=== PATIENT | male | born 1960 | race Caucasian/White ===

== ENCOUNTER 2017-07-18 17:23 | Emergency (ER) | payer SELFPAY ==
[~2017-07-18] VITALS: Ht 188 cm; Wt 72.7 kg
[~2017-07-18 17:23] MED LIST: BACTROBAN CREAM15 GM TP; MOBIC7.5 MG PO
[2017-07-18 17:54] LABS: HEMATOCRIT 51.4 % (38.0-50.0); HEMOGLOBIN 17.5 G/DL (12.5-16.6); MCH 29.8 PG (29.0-34.0); MCV 87.6 FL (86-99); RBC DIS.WIDTH-CV 15.8 % (11.8-14.6); RBC DIS.WIDTH-SD 50.3 % (39-53); RED BLOOD COUNT 5.87 M/uL (4.00-5.50)
[2017-07-18 18:04] LABS: CHLORIDE 110 mEq/L (99-109); POTASSIUM 3.9 mEq/L (3.7-5.4); SODIUM 151 mEq/L (136-147)
[2017-07-18 18:06] LABS: GLUCOSE 91 mg/dL (70-99)
[2017-07-18 18:09] LABS: SERUM ETHYL ALCOHOL 346 mg/dL
[2017-07-18 18:10] LABS: CREATININE 0.8 mg/dL (0.6-1.3); GFR ESTIMATE (CALCULATED) > 59 mL/min/ (58.99-99999)
[2017-07-18 18:12] LABS: UREA NITROGEN (BUN) 6 mg/dL (9-23)
[2017-07-18 18:13] LABS: SALICYLATE < 5.0 MG/DL (15-30)
[2017-07-18 18:14] LABS: ACETAMINOPHEN (TYLENOL) < 10 mcg/mL (10-30)
[2017-07-18 18:25] LABS: THC CANNABINOIDS NEGATIVE (50 ng/mL)
[2017-07-18 18:26] LABS: AMPHETAMINE NEGATIVE (500 ng/mL); BARBITURATES NEGATIVE (200 ng/mL); BENZODIAZEPINES NEGATIVE (150 ng/mL); BUPRENORPHINE NEGATIVE (10 ng/mL); COCAINE NEGATIVE (150 ng/mL); METHADONE NEGATIVE (200 ng/mL); METHAMPHETAMINE NEGATIVE (500 ng/mL); OPIATES (MORPHINE) NEGATIVE (100 ng/mL); OXYCODONE NEGATIVE (100 ng/mL); PHENCYCLIDINE NEGATIVE (25 ng/mL); PROPOXYPHENE NEGATIVE (300 ng/mL); TRICYCLIC ANTIDEPRESSANTS NEGATIVE (300 ng/mL)
[2017-07-18 18:36] LABS: PLAT.SUFFICIENCY ADEQUATE; PLATELET COUNT 183 K/uL (156-360)
[2017-07-18 23:19] VITALS: BP 130/72
== END 2017-07-18 23:20 | disposition home or self-care (01) ==
LOC: EME 17:23
PROVIDERS: Emergency Medicine
DX: F10.129 Alcohol abuse with intoxication, unspecified (principal); Y90.8 Blood alcohol level of 240 mg/100 ml or more; F17.200 Nicotine dependence, unspecified, uncomplicated
CPT/HCPCS: 80048; 85027; 99281; 99285; G0480

== ENCOUNTER 2017-07-21 10:06 | Emergency (ER) | payer SELFPAY ==
[~2017-07-21] VITALS: Ht 177.8 cm; Wt 74.0 kg
[2017-07-21 10:53] LABS: HEMATOCRIT 49.7 % (38.0-50.0); HEMOGLOBIN 16.3 G/DL (12.5-16.6); MCH 29.1 PG (29.0-34.0); MCHC 32.8 G/DL (30.0-36.0); MCV 88.8 FL (86-99); PLATELET COUNT 174 K/uL (156-360); RBC DIS.WIDTH-CV 16.4 % (11.8-14.6); RBC DIS.WIDTH-SD 53.2 % (39-53)
[2017-07-21 11:00] LABS: ALBUMIN 3.8 g/dL (3.2-4.8); CHLORIDE 109 mEq/L (99-109); POTASSIUM 3.9 mEq/L (3.7-5.4); SODIUM 147 mEq/L (136-147)
[2017-07-21 11:03] LABS: GLUCOSE 107 mg/dL (70-99); TOTAL PROTEIN 6.7 g/dL (6.4-8.3)
[2017-07-21 11:04] LABS: TOTAL BILIRUBIN 0.3 mg/dL (0.0-1.0)
[2017-07-21 11:06] LABS: ALKALINE PHOSPHATASE 78 IU/L (3-129); CREATININE 0.7 mg/dL (0.6-1.3); GFR ESTIMATE (CALCULATED) > 59 mL/min/ (58.99-99999); SERUM ETHYL ALCOHOL 236 mg/dL
[2017-07-21 11:07] LABS: UREA NITROGEN (BUN) 9 mg/dL (9-23)
[2017-07-21 11:08] LABS: AST (GOT) 23 IU/L (2-34)
[2017-07-21 11:09] LABS: ALT (GPT) 18 IU/L (3-49)
[2017-07-21 15:14] VITALS: BP 136/88
== END 2017-07-21 15:39 | disposition home or self-care (01) ==
LOC: EME 10:06
PROVIDERS: Emergency Medicine
DX: F10.129 Alcohol abuse with intoxication, unspecified (principal); Y90.7 Blood alcohol level of 200-239 mg/100 ml; S80.211A Abrasion, right knee, initial encounter; F31.9 Bipolar disorder, unspecified; F20.9 Schizophrenia, unspecified; F17.200 Nicotine dependence, unspecified, uncomplicated
CPT/HCPCS: 73564; 80053; 81003; 85027; 99281; 99284; G0480

== ENCOUNTER 2017-07-21 17:50 | Emergency (ER) | payer SELFPAY ==
[~2017-07-21] VITALS: Ht 182.9 cm; Wt 83.9 kg
[2017-07-22 00:50] VITALS: BP 145/99
== END 2017-07-22 00:50 | disposition home or self-care (01) ==
LOC: EME 17:50
DX: F10.129 Alcohol abuse with intoxication, unspecified (principal); F43.10 Post-traumatic stress disorder, unspecified; F17.200 Nicotine dependence, unspecified, uncomplicated; F20.9 Schizophrenia, unspecified
CPT/HCPCS: 70450; 71045; 72125; 82948; 99281; 99284

== ENCOUNTER 2017-07-27 16:28 | Emergency (ER) | payer SELFPAY ==
[~2017-07-27] VITALS: Ht 188 cm; Wt 73.0 kg
[2017-07-27 16:34] VITALS: BP 139/96
== END 2017-07-27 20:37 | disposition left against medical advice (07) ==
LOC: EME 16:28
DX: F10.99 Alcohol use, unspecified with unspecified alcohol-induced disorder (principal); Z53.21 Procedure and treatment not carried out due to patient leaving prior to being seen by health care provider

== ENCOUNTER 2017-08-07 14:18 | Emergency (ER) | payer SELFPAY ==
[~2017-08-07] VITALS: Ht 188 cm; Wt 69.3 kg
[2017-08-07 17:58] VITALS: BP 116/79
== END 2017-08-07 18:00 | disposition home or self-care (01) ==
LOC: EME 14:18
PROC: 0HQ0XZZ Repair Scalp Skin, External Approach (ICD-10-PCS; principal; 2017-08-07)
DX: F10.129 Alcohol abuse with intoxication, unspecified (principal); S01.01XA Laceration without foreign body of scalp, initial encounter; M25.511 Pain in right shoulder; W19.XXXA Unspecified fall, initial encounter; F31.9 Bipolar disorder, unspecified; F20.9 Schizophrenia, unspecified; F17.200 Nicotine dependence, unspecified, uncomplicated
CPT/HCPCS: 70450; 71046; 72125; 99281; 99284

== ENCOUNTER 2017-08-09 16:06 | Inpatient (IN) | payer SELFPAY ==
[~2017-08-09] VITALS: Ht 167.6 cm; Wt 64.8 kg
[2017-08-09 16:31] LABS: APPEARANCE CLEAR ((CLEAR)); BILIRUBIN NEGATIVE; BLOOD SMALL; COLOR STRAW ((YELLOW)); GLUCOSE (STRIP) NEGATIVE; KETONES NEGATIVE; LEUKOCYTES NEGATIVE; NITRITE NEGATIVE; PROTEIN (STRIP) NEGATIVE; SPECIFIC GRAVITY 1.003 (1.000-1.030); UROBILINOGEN 0.2 MG/DL (0.2-1.0)
[2017-08-09 16:35] LABS: BACTERIA RARE /HPF; EPITHELIAL CELLS NONE SEEN /HPF; MUCUS NONE SEEN /LPF; RED BLOOD CELLS 0-5 /HPF (0-5); UCUL ADDED? NO; WHITE BLOOD CELLS 0-5 /HPF (0-5)
[2017-08-09 16:39] LABS: HEMATOCRIT 48.3 % (38.0-50.0); HEMOGLOBIN 16.3 G/DL (12.5-16.6); MCH 29.9 PG (29.0-34.0); MCHC 33.7 G/DL (30.0-36.0); MCV 88.5 FL (86-99); PLATELET COUNT 167 K/uL (156-360); RBC DIS.WIDTH-CV 17.2 % (11.8-14.6); RBC DIS.WIDTH-SD 55.4 % (39-53); RED BLOOD COUNT 5.46 M/uL (4.00-5.50); WHITE BLOOD COUNT 6.8 K/uL (4.1-10.2)
[2017-08-09 16:42] LABS: AMPHETAMINE NEGATIVE (500 ng/mL); BARBITURATES NEGATIVE (200 ng/mL); BENZODIAZEPINES NEGATIVE (150 ng/mL); BUPRENORPHINE NEGATIVE (10 ng/mL); COCAINE NEGATIVE (150 ng/mL); METHADONE NEGATIVE (200 ng/mL); METHAMPHETAMINE NEGATIVE (500 ng/mL); OPIATES (MORPHINE) NEGATIVE (100 ng/mL); OXYCODONE NEGATIVE (100 ng/mL); PHENCYCLIDINE NEGATIVE (25 ng/mL); PROPOXYPHENE NEGATIVE (300 ng/mL); THC CANNABINOIDS NEGATIVE (50 ng/mL); TRICYCLIC ANTIDEPRESSANTS NEGATIVE (300 ng/mL)
[2017-08-09 16:48] LABS: CHLORIDE 108 mEq/L (99-109); POTASSIUM 3.6 mEq/L (3.7-5.4); SODIUM 147 mEq/L (136-147)
[2017-08-09 16:49] LABS: GLUCOSE 80 mg/dL (70-99)
[2017-08-09 16:53] LABS: CREATININE 0.7 mg/dL (0.6-1.3); GFR ESTIMATE (CALCULATED) > 59 mL/min/ (58.99-99999); SERUM ETHYL ALCOHOL 380 mg/dL
[2017-08-09 16:54] LABS: UREA NITROGEN (BUN) 6 mg/dL (9-23)
[2017-08-10 04:26] VITALS: BP 129/79
[2017-08-10] MEDS ORDERED: KLONOPIN1 MG PO (05:25)
[2017-08-10] MEDS ORDERED: NEURONTIN800 MG PO (05:26)
[2017-08-10] MEDS ORDERED: CELEXA10 MG PO (05:28)
[2017-08-10] MEDS ORDERED: REMERON15 M2 PO (05:39)
[2017-08-10 08:00] VITALS: BP 133/68
[2017-08-10 13:00] VITALS: BP 140/86
[2017-08-10 13:42] VITALS: BP 140/86
[2017-08-10 15:49] VITALS: BP 124/69
[2017-08-11 08:00] VITALS: BP 135/80
[2017-08-11 08:30] VITALS: BP 140/77
[2017-08-11] MEDS ORDERED: FOLIC ACID1 MG PO (10:14)
[2017-08-11] MEDS ORDERED: THERAGRAN1 TABLET PO (10:14)
[2017-08-11] MEDS ORDERED: Thiamine,Vitamin B1 PO (10:14)
[2017-08-11] MEDS ORDERED: ATIVAN1 MG PO (10:14)
[2017-08-11] MEDS ORDERED: GABAPENTIN300 MG PO (10:14)
[2017-08-11] MEDS ORDERED: CITALOPRAM HBR20 MG PO (10:14)
== END 2017-08-11 10:50 | disposition left against medical advice (07) | DRG 885 ==
LOC: EME 16:06 → EDOF 08-10 03:56 → ENRESERV 08-10 04:10 → 1WEST 08-10 04:17
PROVIDERS: Emergency Medicine
DX: F33.9 Major depressive disorder, recurrent, unspecified (principal); R45.851 Suicidal ideations; F10.239 Alcohol dependence with withdrawal, unspecified; F10.229 Alcohol dependence with intoxication, unspecified; Y90.8 Blood alcohol level of 240 mg/100 ml or more; F60.9 Personality disorder, unspecified; F17.210 Nicotine dependence, cigarettes, uncomplicated
CPT/HCPCS: 70450; 71046; 72125; 80048; 81003; 85027; 90839; 97150 GO; 97165 GO; 99281; 99284; G0480

== ENCOUNTER 2017-08-11 15:43 | Emergency (ER) | payer SELFPAY ==
[~2017-08-11] VITALS: Ht 190.5 cm; Wt 70.3 kg
[~2017-08-11 15:43] MED LIST changes: +ATIVAN1 MG PO; +CELEXA10 MG PO; +CITALOPRAM HBR20 MG PO; +FOLIC ACID1 MG PO; +GABAPENTIN300 MG PO; +KLONOPIN1 MG PO; +NEURONTIN800 MG PO; +REMERON15 M2 PO; +THERAGRAN1 TABLET PO; +Thiamine,Vitamin B1 PO
[2017-08-11 18:13] LABS: HEMATOCRIT 45.4 % (38.0-50.0); HEMOGLOBIN 15.5 G/DL (12.5-16.6); MCH 30.3 PG (29.0-34.0); MCHC 34.1 G/DL (30.0-36.0); MCV 88.8 FL (86-99); PLATELET COUNT 153 K/uL (156-360); RBC DIS.WIDTH-CV 16.4 % (11.8-14.6); RED BLOOD COUNT 5.11 M/uL (4.00-5.50); WHITE BLOOD COUNT 6.7 K/uL (4.1-10.2)
[2017-08-11 18:22] LABS: APPEARANCE CLEAR ((CLEAR)); BILIRUBIN NEGATIVE; BLOOD NEGATIVE; COLOR STRAW ((YELLOW)); GLUCOSE (STRIP) NEGATIVE; KETONES NEGATIVE; LEUKOCYTES NEGATIVE; NITRITE NEGATIVE; PROTEIN (STRIP) NEGATIVE; SPECIFIC GRAVITY 1.004 (1.000-1.030); UCUL ADDED? NO; UROBILINOGEN 0.2 MG/DL (0.2-1.0)
[2017-08-11 18:24] LABS: CHLORIDE 106 mEq/L (99-109); POTASSIUM 3.5 mEq/L (3.7-5.4); SODIUM 142 mEq/L (136-147)
[2017-08-11 18:25] LABS: GLUCOSE 83 mg/dL (70-99)
[2017-08-11 18:28] LABS: SERUM ETHYL ALCOHOL 168 mg/dL
[2017-08-11 18:29] LABS: CREATININE 0.7 mg/dL (0.6-1.3); GFR ESTIMATE (CALCULATED) > 59 mL/min/ (58.99-99999)
[2017-08-11 18:30] LABS: UREA NITROGEN (BUN) 9 mg/dL (9-23)
[2017-08-11 18:33] LABS: AMPHETAMINE NEGATIVE (500 ng/mL); BARBITURATES NEGATIVE (200 ng/mL); BENZODIAZEPINES PRESUMPTIVE POSITIVE (150 ng/mL); BUPRENORPHINE NEGATIVE (10 ng/mL); COCAINE NEGATIVE (150 ng/mL); METHADONE NEGATIVE (200 ng/mL); METHAMPHETAMINE NEGATIVE (500 ng/mL); OPIATES (MORPHINE) NEGATIVE (100 ng/mL); OXYCODONE NEGATIVE (100 ng/mL); PHENCYCLIDINE NEGATIVE (25 ng/mL); PROPOXYPHENE NEGATIVE (300 ng/mL); THC CANNABINOIDS NEGATIVE (50 ng/mL); TRICYCLIC ANTIDEPRESSANTS NEGATIVE (300 ng/mL)
[2017-08-11 19:10] LABS: BENZODIAZEPINES, URINE SCREEN Negative (200 ng/mL)
[2017-08-12 08:19] VITALS: BP 148/86
[2017-08-13] MEDS ORDERED: LIBRIUM25 MG PO (04:33)
== END 2017-08-12 08:28 | disposition home or self-care (01) ==
LOC: EME 15:43
PROVIDERS: Emergency Medicine
DX: F10.129 Alcohol abuse with intoxication, unspecified (principal); F19.14 Other psychoactive substance abuse with psychoactive substance-induced mood disorder; F32.9 Major depressive disorder, single episode, unspecified; R45.851 Suicidal ideations; F60.9 Personality disorder, unspecified; Y90.6 Blood alcohol level of 120-199 mg/100 ml; F43.10 Post-traumatic stress disorder, unspecified; R56.9 Unspecified convulsions; F20.9 Schizophrenia, unspecified; F17.200 Nicotine dependence, unspecified, uncomplicated
CPT/HCPCS: 80048; 81003; 82948; 84999; 85027; 90839; 99281; 99284; G0480

== ENCOUNTER 2017-08-12 19:19 | Emergency (ER) | payer SELFPAY ==
[~2017-08-12] VITALS: Ht 190.5 cm; Wt 75.1 kg
[2017-08-12 21:06] LABS: BASOPHIL COUNT 0.1 K/uL (0-0.1); EOSINOPHIL (%) 2.1 % (0-5); EOSINOPHIL COUNT 0.1 K/uL (0-0.3); HEMATOCRIT 48.6 % (38.0-50.0); HEMOGLOBIN 16.5 G/DL (12.5-16.6); IMMATURE GRANULOCYTE (%) 0.2 % (0.0-0.7); LYMPHOCYTE (%) 26.6 % (15-42); LYMPHOCYTE COUNT 1.4 K/uL (1.0-2.8); MCH 30.4 PG (29.0-34.0); MCV 89.7 FL (86-99); MONOCYTE (%) 5.8 % (3-12); MONOCYTE COUNT 0.3 K/uL (0-0.8); NEUTROPHIL (%) 64.3 % (45-76); NEUTROPHIL COUNT 3.3 K/uL (1.8-6.4); PLATELET COUNT 156 K/uL (156-360); RBC DIS.WIDTH-CV 16.9 % (11.8-14.6); RBC DIS.WIDTH-SD 55.8 % (39-53); RED BLOOD COUNT 5.42 M/uL (4.00-5.50); WHITE BLOOD COUNT 5.2 K/uL (4.1-10.2)
[2017-08-12 21:16] LABS: CHLORIDE 109 mEq/L (99-109); POTASSIUM 3.8 mEq/L (3.7-5.4); SODIUM 147 mEq/L (136-147)
[2017-08-12 21:18] LABS: GLUCOSE 88 mg/dL (70-99)
[2017-08-12 21:21] LABS: SERUM ETHYL ALCOHOL 270 mg/dL
[2017-08-12 21:22] LABS: CREATININE 0.7 mg/dL (0.6-1.3); GFR ESTIMATE (CALCULATED) > 59 mL/min/ (58.99-99999)
[2017-08-12 21:23] LABS: UREA NITROGEN (BUN) 8 mg/dL (9-23)
[2017-08-12 23:07] LABS: APPEARANCE CLEAR ((CLEAR)); BILIRUBIN NEGATIVE; BLOOD NEGATIVE; COLOR YELLOW ((YELLOW)); GLUCOSE (STRIP) NEGATIVE; KETONES NEGATIVE; LEUKOCYTES NEGATIVE; NITRITE NEGATIVE; PROTEIN (STRIP) NEGATIVE; SPECIFIC GRAVITY 1.008 (1.000-1.030); UCUL ADDED? NO; UROBILINOGEN 0.2 MG/DL (0.2-1.0)
[2017-08-12 23:15] LABS: AMPHETAMINE NEGATIVE (500 ng/mL); BARBITURATES NEGATIVE (200 ng/mL); BENZODIAZEPINES PRESUMPTIVE POSITIVE (150 ng/mL); BUPRENORPHINE NEGATIVE (10 ng/mL); COCAINE NEGATIVE (150 ng/mL); METHADONE NEGATIVE (200 ng/mL); METHAMPHETAMINE NEGATIVE (500 ng/mL); OPIATES (MORPHINE) NEGATIVE (100 ng/mL); OXYCODONE NEGATIVE (100 ng/mL); PHENCYCLIDINE NEGATIVE (25 ng/mL); PROPOXYPHENE NEGATIVE (300 ng/mL); THC CANNABINOIDS NEGATIVE (50 ng/mL); TRICYCLIC ANTIDEPRESSANTS NEGATIVE (300 ng/mL)
[2017-08-13 04:08] LABS: BENZODIAZEPINES, URINE SCREEN POSITIVE (200 ng/mL)
[2017-08-13] MEDS ORDERED: LIBRIUM25 MG PO (04:33)
[2017-08-13 04:46] VITALS: BP 134/88
== END 2017-08-13 04:47 | disposition home or self-care (01) ==
LOC: EME 19:19
PROVIDERS: Emergency Medicine
DX: F19.94 Other psychoactive substance use, unspecified with psychoactive substance-induced mood disorder (principal); F10.929 Alcohol use, unspecified with intoxication, unspecified; R45.851 Suicidal ideations; S00.83XA Contusion of other part of head, initial encounter; W01.198A Fall on same level from slipping, tripping and stumbling with subsequent striking against other object, initial encounter; S01.01XD Laceration without foreign body of scalp, subsequent encounter; F32.9 Major depressive disorder, single episode, unspecified; F17.200 Nicotine dependence, unspecified, uncomplicated; Y90.8 Blood alcohol level of 240 mg/100 ml or more; Z91.030 Bee allergy status; Z91.013 Allergy to seafood; Z88.8 Allergy status to other drugs, medicaments and biological substances
CPT/HCPCS: 70450; 80048; 81003; 84999; 85025; 90839; G0480

== ENCOUNTER 2017-08-14 19:21 | Inpatient (IN) | payer OTHER ==
[~2017-08-14] VITALS: Ht 182.9 cm; Wt 72.0 kg
[~2017-08-14 19:21] MED LIST changes: +LIBRIUM25 MG PO
[2017-08-14 20:37] LABS: HEMATOCRIT 49.4 % (38.0-50.0); MCH 30.5 PG (29.0-34.0); MCHC 34.4 G/DL (30.0-36.0); MCV 88.5 FL (86-99); RBC DIS.WIDTH-CV 17.1 % (11.8-14.6); RBC DIS.WIDTH-SD 54.6 % (39-53); RED BLOOD COUNT 5.58 M/uL (4.00-5.50); WHITE BLOOD COUNT 8.6 K/uL (4.1-10.2)
[2017-08-14 20:43] LABS: PLATELET COUNT 207 K/uL (156-360)
[2017-08-14 20:50] LABS: CHLORIDE 107 mEq/L (99-109); POTASSIUM 3.2 mEq/L (3.7-5.4); SODIUM 145 mEq/L (136-147)
[2017-08-14 20:51] LABS: GLUCOSE 107 mg/dL (70-99)
[2017-08-14 20:54] LABS: SERUM ETHYL ALCOHOL 343 mg/dL
[2017-08-14 20:55] LABS: CREATININE 0.7 mg/dL (0.6-1.3); GFR ESTIMATE (CALCULATED) > 59 mL/min/ (58.99-99999)
[2017-08-14 20:57] LABS: UREA NITROGEN (BUN) 10 mg/dL (9-23)
[2017-08-14 20:58] LABS: SALICYLATE < 5.0 MG/DL (15-30)
[2017-08-14 20:59] LABS: ACETAMINOPHEN (TYLENOL) < 10 mcg/mL (10-30)
[2017-08-14 21:37] LABS: CREATINE KINASE 320 IU/L (1-294)
[2017-08-15 08:46] LABS: APPEARANCE SL.HAZY ((CLEAR)); BILIRUBIN NEGATIVE; BLOOD NEGATIVE; COLOR YELLOW ((YELLOW)); GLUCOSE (STRIP) NEGATIVE; KETONES 5; LEUKOCYTES TRACE; NITRITE NEGATIVE; PROTEIN (STRIP) 30; SPECIFIC GRAVITY 1.017 (1.000-1.030)
[2017-08-15 08:58] LABS: AMPHETAMINE NEGATIVE (500 ng/mL); BARBITURATES NEGATIVE (200 ng/mL); BENZODIAZEPINES PRESUMPTIVE POSITIVE (150 ng/mL); BUPRENORPHINE NEGATIVE (10 ng/mL); COCAINE NEGATIVE (150 ng/mL); METHADONE NEGATIVE (200 ng/mL); METHAMPHETAMINE NEGATIVE (500 ng/mL); OPIATES (MORPHINE) NEGATIVE (100 ng/mL); OXYCODONE NEGATIVE (100 ng/mL); PHENCYCLIDINE NEGATIVE (25 ng/mL); PROPOXYPHENE NEGATIVE (300 ng/mL); THC CANNABINOIDS NEGATIVE (50 ng/mL); TRICYCLIC ANTIDEPRESSANTS NEGATIVE (300 ng/mL)
[2017-08-15 09:24] LABS: EPITHELIAL CELLS RARE /HPF; MUCUS 3+ /LPF; RED BLOOD CELLS 0-5 /HPF (0-5); WHITE BLOOD CELLS 0-5 /HPF (0-5)
[2017-08-15 09:25] LABS: BACTERIA 1+ /HPF
[2017-08-15 09:29] LABS: BENZODIAZEPINES, URINE SCREEN POSITIVE (200 ng/mL)
[2017-08-15 09:45] VITALS: BP 110/69
[2017-08-15 15:55] VITALS: BP 129/61
[2017-08-15 20:19] VITALS: BP 127/76
[2017-08-16 07:58] VITALS: BP 134/81
[2017-08-16 15:45] VITALS: BP 126/69
[2017-08-17 08:00] VITALS: BP 102/55
[2017-08-17 15:39] VITALS: BP 132/61
[2017-08-18 07:46] VITALS: BP 130/81
[2017-08-18 15:41] VITALS: BP 131/63
[2017-08-19 08:15] VITALS: BP 129/73
[2017-08-19 16:24] VITALS: BP 109/60
[2017-08-20 07:28] VITALS: BP 121/66
[2017-08-20] MEDS ORDERED: MIRTAZAPINE30 MG PO (09:37)
[2017-08-20] MEDS ORDERED: CITALOPRAM HBR20 MG PO (09:37)
[2017-08-20] MEDS ORDERED: GABAPENTIN400 MG PO (09:37)
== END 2017-08-20 11:20 | disposition other institution (70) | DRG 885 ==
LOC: EME 19:21 → 1WEST 08-15 06:32 → EDOF 08-15 06:32 → ENRESERV 08-15 08:42 → 1WEST 08-15 08:49
PROVIDERS: Physician Assistant; Psychiatry & Neurology Psychiatry
DX: F33.9 Major depressive disorder, recurrent, unspecified (principal); R45.851 Suicidal ideations; F10.24 Alcohol dependence with alcohol-induced mood disorder; F10.229 Alcohol dependence with intoxication, unspecified; Y90.8 Blood alcohol level of 240 mg/100 ml or more; E87.6 Hypokalemia; F17.200 Nicotine dependence, unspecified, uncomplicated; Z91.14 Patient's other noncompliance with medication regimen; Z59.0 Homelessness; Z91.81 History of falling
CPT/HCPCS: 70450; 72125; 72131; 80048; 81003; 82550; 82948; 84999; 85027; 90839; 97150 GO; 99281; 99285; G0480

== ENCOUNTER 2017-09-25 19:36 | Emergency (ER) | payer OTHER ==
[~2017-09-25] VITALS: Ht 188 cm; Wt 81.8 kg
[~2017-09-25 19:36] MED LIST changes: +GABAPENTIN400 MG PO; +MIRTAZAPINE30 MG PO
[2017-09-26 00:59] VITALS: BP 132/87
== END 2017-09-26 01:00 | disposition home or self-care (01) ==
LOC: EME 19:36
DX: F10.129 Alcohol abuse with intoxication, unspecified (principal); R45.6 Violent behavior; F17.200 Nicotine dependence, unspecified, uncomplicated
CPT/HCPCS: 99281; 99284; J1200; J2060

== ENCOUNTER 2017-10-12 13:58 | Emergency (ER) | payer OTHER ==
[~2017-10-12] VITALS: Ht 190.5 cm; Wt 73.7 kg
[2017-10-12 14:44] LABS: AMPHETAMINE NEGATIVE (500 ng/mL); BARBITURATES NEGATIVE (200 ng/mL); BENZODIAZEPINES NEGATIVE (150 ng/mL); BUPRENORPHINE NEGATIVE (10 ng/mL); COCAINE NEGATIVE (150 ng/mL); METHADONE NEGATIVE (200 ng/mL); METHAMPHETAMINE NEGATIVE (500 ng/mL); OPIATES (MORPHINE) NEGATIVE (100 ng/mL); OXYCODONE NEGATIVE (100 ng/mL); PHENCYCLIDINE NEGATIVE (25 ng/mL); PROPOXYPHENE NEGATIVE (300 ng/mL); THC CANNABINOIDS NEGATIVE (50 ng/mL); TRICYCLIC ANTIDEPRESSANTS NEGATIVE (300 ng/mL)
[2017-10-12 14:47] LABS: HEMATOCRIT 43.2 % (38.0-50.0); HEMOGLOBIN 14.8 G/DL (12.5-16.6); MCH 30.6 PG (29.0-34.0); MCHC 34.3 G/DL (30.0-36.0); MCV 89.4 FL (86-99); PLATELET COUNT 160 K/uL (156-360); RBC DIS.WIDTH-CV 14.7 % (11.8-14.6); RBC DIS.WIDTH-SD 48.5 % (39-53); RED BLOOD COUNT 4.83 M/uL (4.00-5.50); WHITE BLOOD COUNT 5.3 K/uL (4.1-10.2)
[2017-10-12 14:56] LABS: ALBUMIN 4.1 g/dL (3.2-4.8); CHLORIDE 106 mEq/L (99-109); POTASSIUM 3.5 mEq/L (3.7-5.4); SODIUM 148 mEq/L (136-147)
[2017-10-12 14:58] LABS: GLUCOSE 97 mg/dL (70-99); TOTAL PROTEIN 7.5 g/dL (6.4-8.3)
[2017-10-12 15:00] LABS: TOTAL BILIRUBIN 0.4 mg/dL (0.0-1.0)
[2017-10-12 15:02] LABS: ALKALINE PHOSPHATASE 139 IU/L (3-129); CREATININE 0.8 mg/dL (0.6-1.3); GFR ESTIMATE (CALCULATED) > 59 mL/min/ (58.99-99999)
[2017-10-12 15:03] LABS: AST (GOT) 93 IU/L (2-34); UREA NITROGEN (BUN) 8 mg/dL (9-23)
[2017-10-12 15:05] LABS: ALT (GPT) 73 IU/L (3-49)
[2017-10-13 02:56] VITALS: BP 130/72
== END 2017-10-13 02:57 | disposition home or self-care (01) ==
LOC: EME 13:58
PROVIDERS: Emergency Medicine Emergency Medical Services
DX: F10.129 Alcohol abuse with intoxication, unspecified (principal); Y90.8 Blood alcohol level of 240 mg/100 ml or more; F32.9 Major depressive disorder, single episode, unspecified; R45.851 Suicidal ideations; R45.850 Homicidal ideations; F17.200 Nicotine dependence, unspecified, uncomplicated; G43.809 Other migraine, not intractable, without status migrainosus; R56.9 Unspecified convulsions; F31.9 Bipolar disorder, unspecified; F43.10 Post-traumatic stress disorder, unspecified; F20.9 Schizophrenia, unspecified
CPT/HCPCS: 80048; 80053; 85027; 90839; 99281; 99285; G0480